=== PATIENT | male | born 1970 | race Hispanic/Latino ===

== ENCOUNTER 2017-11-21 11:12 | Emergency (ER) | payer OTHER ==
[2017-11-21] MEDS ORDERED: KEPPRA 1,000 MG/NS 0.75% 100ML 1,000 MG/100 ML BAG IV ONE (11:37)
[2017-11-21 12:32] LABS: Hematocrit 39.2 % (35.5-45.6); Hemoglobin 12.8 gm/dl (11.8-15.2); Mean Corpuscular HGB Conc 33 % (32-34); Mean Corpuscular Hemoglobin 26 pg (28-32); Mean Corpuscular Volume 80 fl (84-94); Platelet Count 328 K/mm3 (140-440); Red Blood Count 4.87 M/mm3 (3.65-5.03); Red Cell Distribution Width 18.4 % (13.2-15.2)
[2017-11-21 12:49] LABS: BUN/Creatinine Ratio 14; Blood Urea Nitrogen 13 mg/dL (9-20); Calcium 8.8 mg/dL (8.4-10.2); Hemolysis Index 13
[2017-11-21 12:56] LABS: Amphetamine Screen,Urine PRESUMPTIVE NEGATIVE; Benzodiazepines Screen,Urine PRESUMPTIVE NEGATIVE; Cannabinoid Screen,Urine PRESUMPTIVE NEGATIVE; Cocaine Screen,Urine PRESUMPTIVE NEGATIVE; Methadone Screen,Urine PRESUMPTIVE NEGATIVE; Opiate Screen,Urine PRESUMPTIVE NEGATIVE
[2017-11-21] MEDS ORDERED: MAGNESIUM SULFATE 2GM/50ML 2 GM/50 ML BAG IV ONE (14:07)
--- NOTE | 2017-11-21 15:36 | Emergency Department Report ---
ED Seizure HPI - General Chief Complaint: Seizure Stated Complaint: SEIZURE Time Seen by Provider: 11/21/17 11:36 Source: EMS Mode of arrival: Stretcher Limitations: Physical Limitation, Other - History of Present Illness Initial Comments: 47 year old male with a past medical history of seizures presents to the hospital after having a seizure. Patient states he is homeless and off Keppra. He has been in the hospital for recurrent seizures. Initially patient was speaking to the nurse and was oriented. When I first went to the bedside patient appeared to be post ictal might be had another seizure while in the ED. I reevaluated patient after postictal period resolved and he was once again alert and oriented 3. He cannot recall when he took his last dose of Keppra. He states that his Keppra is at a homeless assisted but he doesn't have a way to get back to the homeless assisted. 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 No aggravating or relieving factors reported. - Related Data Previous Rx's Medication Instructions Recorded Last Taken Type levETIRAcetam [Keppra TAB] 1,000 mg PO BID #60 tab 11/21/17 Unknown Rx Allergies Allergy/AdvReac Type Severity Reaction Status Date / Time No Known Allergies Allergy Unverified 11/21/17 11:31 ED Review of Systems ROS: Stated complaint: SEIZURE Other details as noted in HPI Comment: All other systems reviewed and negative Other: Constitutional: No fevers chills Eyes: No eye pain visual changes ENT: No ear pain or throat pain Neck: Denies pain Respiratory: Denies cough wheezing shortness of breath Cardiovascular: Denies chest pain, palpitations, syncope GI: Denies abdominal pain, nausea, vomiting, diarrhea, : Denies dysuria Musculoskeletal: Denies back pain Skin: Denies rash, lesions, erythema Neurologic: As per HPI Psychiatric: Denies suicidal ideation, hallucinations ED Past Medical Hx - Past Medical History Previous Medical History?: Yes Hx Seizures: Yes - Social History Smoking Status: Never Smoker Substance Use Type: Alcohol - Medications Home Medications: Home Medications Medication Instructions Recorded Confirmed Last Taken Type levETIRAcetam [Keppra TAB] 1,000 mg PO BID #60 tab 11/21/17 Unknown Rx ED Physical Exam - General Limitations: Physical Limitation, Other - Other Other exam information: General: No limitations, patient is alert in no acute distress Head exam: Atraumatic, normocephalic Eyes exam: Normal appearance, pupils equal reactive to light, extraocular movements intact ENT: Moist mucous membrane, normal oropharynx Neck exam: Normal inspection, full range of motion, no meningismus nontender Respiratory exam: Clear to auscultation bilateral, no wheezes, rales, crackles Cardiovascular: Normal rate and rhythm, normal heart sounds Abdomen: Soft, nondistended, and nontender, with normal bowel sounds, no rebound, or guarding Extremity: Full range of motion normal inspection no deformity Back: Normal Inspection, full range of motion, no tenderness Neurologic: Alert, oriented x3, cranial nerves intact, no motor or sensory deficit Psychiatric: normal affect, normal mood Skin: Warm, dry, intact ED Course Vital Signs 11/21/17 11/21/17 11:27 11:30 Temperature 97 F L Pulse Rate 95 H Respiratory 20 16 Rate Blood Pressure 180/67 O2 Sat by Pulse 99 Oximetry - Reevaluation(s) Reevaluation #1: 11/21/17 15:44 Patient received IV Keppra and IV magnesium. Oriented 3 at baseline ED Medical Decision Making - Lab Data Result diagrams: 11/21/17 12:00 11/21/17 12:00 Lab Results 11/21/17 11/21/17 11/21/17 Range/Units 12:00 12:00 12:00 WBC 7.5 (4.5-11.0) K/mm3 RBC 4.87 (3.65-5.03) M/mm3 Hgb 12.8 (11.8-15.2) gm/dl Hct 39.2 (35.5-45.6) % MCV 80 L (84-94) fl MCH 26 L (28-32) pg MCHC 33 (32-34) % RDW 18.4 H (13.2-15.2) % Plt Count 328 (140-440) K/mm3 Sodium 146 H (137-145) mmol/L Potassium 4.4 (3.6-5.0) mmol/L Chloride 102.0 (98-107) mmol/L Carbon Dioxide 26 (22-30) mmol/L Anion Gap 22 mmol/L BUN 13 (9-20) mg/dL Creatinine 0.9 (0.8-1.5) mg/dL Estimated GFR > 60 ml/min BUN/Creatinine Ratio 14 % Glucose 92 (75-100) mg/dL Calcium 8.8 (8.4-10.2) mg/dL Magnesium 1.50 L (1.7-2.3) mg/dL Urine Opiates Screen Urine Methadone Screen Ur Barbiturates Screen Ur Phencyclidine Scrn Ur Amphetamines Screen U Benzodiazepines Scrn Urine Cocaine Screen U Marijuana (THC) Screen Drugs of Abuse Note 11/21/17 Range/Units Unknown WBC (4.5-11.0) K/mm3 RBC (3.65-5.03) M/mm3 Hgb (11.8-15.2) gm/dl Hct (35.5-45.6) % MCV (84-94) fl MCH (28-32) pg MCHC (32-34) % RDW (13.2-15.2) % Plt Count (140-440) K/mm3 Sodium (137-145) mmol/L Potassium (3.6-5.0) mmol/L Chloride (98-107) mmol/L Carbon Dioxide (22-30) mmol/L Anion Gap mmol/L BUN (9-20) mg/dL Creatinine (0.8-1.5) mg/dL Estimated GFR ml/min BUN/Creatinine Ratio % Glucose (75-100) mg/dL Calcium (8.4-10.2) mg/dL Magnesium (1.7-2.3) mg/dL Urine Opiates Screen Presumptive negative Urine Methadone Screen Presumptive negative Ur Barbiturates Screen Presumptive negative Ur Phencyclidine Scrn Presumptive negative Ur Amphetamines Screen Presumptive negative U Benzodiazepines Scrn Presumptive negative Urine Cocaine Screen Presumptive negative U Marijuana (THC) Screen Presumptive negative Drugs of Abuse Note Disclamer - Medical Decision Making Plan to discharge patient with a refill in [facility]. Breakthrough seizure likely secondary to noncompliance. Magnesium was supplemented prior to discharge - Differential Diagnosis breakthrough seizure, medication noncompliance, electrolyte abnormality Critical Care Time: No Critical care attestation.: If time is entered above; I have spent that time in minutes in the direct care of this critically ill patient, excluding procedure time. ED Disposition Clinical Impression: Seizures, Noncompliance with medication regimen, Homeless, Hypomagnesemia Disposition: DC-01 TO HOME OR SELFCARE Is pt being admited?: No Does the pt Need Aspirin: No Condition: Stable Instructions: Recurrent Seizures Adult (ED), Hypomagnesemia (ED) Additional Instructions: Take the medication as prescribed. Return is symptoms worsen. Prescriptions: levETIRAcetam [Keppra TAB] 1,000 mg PO BID #60 tab Referrals: [facility] [Provider Group] - 3-5 Days (Primary care clinic) BHAVIN PA MD [Staff Physician] - 3-5 Days (Neurologist) Time of Disposition: 15:46
[2017-11-21 16:39] VITALS: BP 170/100
== END 2017-11-21 16:55 | disposition home or self-care (01) ==
LOC: ED 11:12
DX: R56.9 Unspecified convulsions (principal); E83.42 Hypomagnesemia; Z91.14 Patient's other noncompliance with medication regimen
CPT/HCPCS: 36415; 80048; 80307; 83735; 85027; 96365; 96367; 99284; J1953; J3475